=== PATIENT | male | born 1980 ===

== ENCOUNTER 2024-05-05 09:48 | Outpatient (CLI) | payer MEDICAID, SELFPAY ==
--- NOTE | 2024-05-05 09:55 | CTR_ITS ---
PROCEDURE INFORMATION: Exam: CT Temporal Bones Without Contrast. 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 Radiation optimization: All CT scans at this facility use at least one of these dose optimization techniques: automated exposure control; mA and/or kV adjustment per patient size (includes targeted exams where dose is matched to clinical indication); or iterative reconstruction. COMPARISON: No relevant prior studies available. RADIATION DOSE METRICS: Total DLP (mGy-cm): 296.5 FINDINGS: Right inner ear: Normal. Right ossicles and middle ear: Normal. The middle ear ossicles are intact. Right external auditory canal: There is a 9.5 mm rounded growth near the opening to the external auditory canal. This contains small calcifications. It is smoothly marginated. Exactly what this represents is unknown. It is not clear whether this is of osseous or soft tissue origin. Right facial nerve canal: Normal. Right jugular foramen: No jugular dehiscence. Right carotid canal: No aberrant carotid canal. Right mastoid air cells: The mastoid air cells are normal. Left inner ear: Normal. Left ossicles and middle ear: Normal. The middle ear ossicles are intact. Left external auditory canal: Normal. Left facial nerve canal: Normal. Left jugular foramen: No jugular dehiscence. Left carotid canal: No aberrant carotid canal. Left mastoid air cells: Normal. No mastoid effusions. Paranasal sinuses: Mucosal thickening within the ethmoid and sphenoid sinuses as well as slightly within the left maxillary. Soft tissues: See Right external auditory canal finding. CT/CT temporal bone wo con* [id number] IMPRESSION: Small growth near the right external auditory canal.
== END 2024-05-05 09:49 | disposition home or self-care (01) ==
LOC: RAD 09:50
PROVIDERS: Family Provider Family Medicine; PCP Family Medicine; Visit Provider Otolaryngology
DX: D23.21 Other benign neoplasm of skin of right ear and external auricular canal (principal); H91.91 Unspecified hearing loss, right ear
CPT/HCPCS: 70480

== ENCOUNTER → 2024-09-13 15:21 | Outpatient (BNVA) | payer MEDICAID, SELFPAY | PROVIDERS: Family Provider Family Medicine; PCP Family Medicine; Visit Provider Internal Medicine Cardiovascular Disease | DX: R07.9 Chest pain, unspecified (principal) | CPT/HCPCS: 93005 ==